=== PATIENT | female | born 1965 | race Caucasian/White ===

== ENCOUNTER 2019-02-13 20:36 | Emergency (ER) | payer OTHER, SELFPAY ==
[2019-02-13 20:37] VITALS: BP 165/78; PULSE 63; RESP 16; TEMP 36.8; O2SAT 96; BMI 40.7
--- NOTE | 2019-02-13 21:19 | CT_ITS ---
STUDY: CT ABDOMEN AND PELVIS WITH CONTRAST REASON FOR EXAM: Female, 53 years old. Right-sided abdominal pain and nausea. History of asthma and GERD and hypertension. RADIATION DOSAGE (If Supplied By Facility): CTDIvol = ( 22.05 ) mGy, DLP = ( 1201.35 ) mGycm TECHNIQUE: Transaxial images were obtained from the dome of the diaphragm to the symphysis pubis without oral contrast. 100ML IV Isovue 370 was administered. Sagittal and coronal images were reconstructed. Individualized dose optimization techniques were used for this CT. COMPARISON: None. FINDINGS: The visualized lung bases are unremarkable. The visualized portions of the heart are within normal limits. Normal liver. 1 tiny gallbladder calcification. Nondistended gallbladder without wall thickening or pericholecystic fluid. Normal spleen. Normal pancreas. Normal bilateral adrenal glands. Normal right kidney. Normal left kidney. Nondistended stomach. Normal small intestine. Excess liquid stool present throughout the colon without wall thickening or diverticulosis The appendix is visualized and appears normal. Normal abdominal aorta. Normal inferior vena cava. Normal retroperitoneum. Nondistended urinary bladder. 1.8 cm right ovarian cyst or dominant follicle. Normal uterus. No free fluid of the pelvis. Minimal fatty left groin hernia. Bilateral chronic pars interarticularis defect at L5 with a grade [address]/Abdomen/Pelvis W IV Cont ONLY IMPRESSION: Negative for evidence of bowel obstruction or perforation. Nondistended stomach and small bowel. Excess liquid stool present throughout the colon without wall thickening or other inflammatory changes. Normal appendix. 1 tiny gallbladder calcification/stone without distention of the gallbladder, wall thickening or pericholecystic fluid nondistended common bile ducts. No acute renal findings. Negative for hydronephrosis or stones. 1.8 cm right ovarian cyst or dominant follicle. Negative for other pelvic mass or free fluid of the pelvis. Electronically Signed: Rosie Zamora MD at 22:57 EDT , Service support ,
[2019-02-13] MEDS: 0.9% Normal Saline 1,000 ML 1000 ML IV (21:50)
[2019-02-13 21:51] LABS: Bacteria 0 SEEN /hpf (None Seen); Mucous, Urine 0 SEEN /hpf (<or=2+); Red Blood Cells-Urine 0 SEEN /hpf (0-5); White Blood Cells 0 SEEN /hpf (0-5)
[2019-02-13] MEDS: Ondansetron 4 MG/2 ML Vial IV (21:51)
[2019-02-13] MEDS: Ketorolac 30 MG/ML Syringe 15 MG IV (21:52)
[2019-02-13 21:55] LABS: Absolute Lymphocyte Count 2.13 X10^3/uL (0.83-4.51); Absolute Neutrophil Count 5.4 X10^3/uL (2.0-7.7); Basophil# 0.04 X10^3/uL; Basophil% 0.5 % (0-1); Eosinophil# 0.11 X10^3/uL; Eosinophils% 1.3 % (0-5); Hematocrit 41.7 % (37-47); Hemoglobin 13.7 g/dL (12.0-15.0); Lymphocyte # 2.13 X10^3/ul (4.0); Lymphocyte % 25.6 % (19-41); Mean Corp Hgb Conc 32.9 g/dL (32-36); Mean Corpuscular Volume 91.2 fL (81-99); Mean Platelet Vol. 10.2 fl (6.2-12.0); Monocyte# 0.66 X10^3/uL; Monocyte% 7.9 % (0-10); NRBC Flagged by Analyzer 0 % (0-5); Neutrophil # 5.36 X10^3/uL (2.7-7.7); Neutrophil % 64.3 % (47-70); Platelet Count 244 K/mm3 (150-450); RBC Distribution Width CV 12.1 % (11.6-14.6); Red Blood Count 4.57 M/mm3 (4.2-5.4); White Blood Count 8.3 K/mm3 (4.4-11.0)
[2019-02-13 21:59] LABS: Color, Urine Yellow (Yellow); Glucose, Dipstick Normal (Normal); Ketone-Dipstick Negative (Negative); Leukocyte Esterase-Dipstick Negative /ul (Negative); Nitrite-Dipstick Negative (Negative); Occult Blood-Urine Negative /ul (Negative); Protein-Dipstick Negative (Negative); Urine Bilirubin Dipstick Negative (Negative); Urine Clarity Clear (Clear); Urine Urobilinogen Normal (Normal)
[2019-02-13 22:05] LABS: Squamous Epithelial Cells - UA 0-5 SEEN /hpf (5-10)
[2019-02-13 22:11] LABS: AST(SGOT) 17 U/L (15-37); Alanine Aminotransfer ALT/SGPT 20 U/L (13-56); Albumin, Serum 3.8 g/dL (3.2-5.0); Alkaline Phosphatase 106 U/L (45-117); Anion Gap 4 (5-15); BUN 9 mg/dL (7-18); BUN/Creat Ratio 8.9 RATIO (10-20); Calcium,Total 9.2 mg/dL (8.5-10.1); Chloride 107 mmol/L (98-107); Creatinine, Serum 1.01 mg/dL (0.55-1.02); EST Glomerular Filtration Rate 61 mL/min (>60); Est Glom Filt Rate - Afr Amer 74 mL/min (>60); Globulin 3.9 g/dL (2.2-4.2); Glucose 90 mg/dL (74-106); Lipase 112 U/L (73-393); Potassium 3.9 mmol/L (3.5-5.1); Protein, Total 7.7 g/dL (6.4-8.2); Sodium Level 141 mmol/L (136-145)
[2019-02-13 23:07] VITALS: BP 134/79; PULSE 74; RESP 16; O2SAT 98
--- NOTE | 2019-02-13 23:38 | ED.VIS.GEN ---
History of Present Illness Chief Complaint: Abd Pain Narrative: Patient presenting for evaluation secondary to nausea and vomiting. Patient states that over the course of approximately the last 8 months she has been dealing with issues of right flank fullness and basically a continuous type pain. Patient states that she has been dealing with generalized fatigue over the course of that time. She denies any unintended weight loss chills or sweats. Patient states that today she had a precipitous onset of nausea and vomiting. She reports that it is nonbloody and nonbilious. Since its onset she reports that she feels as if she needs to pass flatus, but she cannot. She denies any history of abdominal surgeries in the past. No urinary signs or symptoms. Review of systems otherwise negative. Past Medical History - Allergies and Home Meds Allergies/Adverse Reactions: Allergies ciprofloxacin [From Cipro] Allergy (Verified 02/13/19 20:39) Itching Primary Care Physician: Luis Felipe Chawla MD [Primary Care Provider] - Past Medical History: - - noncontributory Smoking Status: Never smoker Review of Systems All systems negative except as indicated General: Denies: Chills, Fever, Weight loss Gastrointestinal: Reports: Nausea, Vomiting Genitourinary: Reports: - - Flank pain Physical Exam Vital Signs/Narrative: Vital Signs Temp Pulse Resp BP Pulse Ox 02/13/19 23:07 74 16 134/79 H 98 02/13/19 20:37 98.2 F 63 16 165/78 H 96 Inital Vital Signs reviewed: Yes General: Well nourished, Well developed, No Acute Distress Head: Normocephalic, Atraumatic Eyes: Perrl, EOMI ENT: Moist mucous membranes, No rhinorrhea Neck: Supple, Nontender Cardiovascular: Regular rate, Regular rhythm, No murmurs Respiratory: No distress, CTA bilaterally, Chest nontender Abdomen: Soft, Nontender, Nondistended, Normal bowel sounds Back: Nontender, Normal Inspection Extremities: Nontender, No edema Skin: Normal color, No rash Neurological: Alert, Oriented x3, Cranial nerves II-XII grossly intact, Normal Strength, Normal Sensation Psychological: Normal affect, Normal Mood Diagnostic/Tx/Re-eval - Medical Decision Making Patient presented secondary to a perpetual feeling of right upper quadrant and right flank fullness with fatigue nausea vomiting and reports of decreased flatus. There is at least some concern for the possibility of an obstruction or mass or work-up was obtained. CBC, CMP unremarkable. Urinalysis negative. CT abdomen and pelvis per radiology also found to be negative. Patient was given IV fluids and Zofran and did have some symptomatic improvement. This point I do not really have an explanation for the patient's chronic fatigue or right flank discomfort, but she seems to have no emergent processes at this time. Patient was discharged with reassurance in improved condition, she likely has an element of gastritis today. ED Disposition - Plan for ED Patient: Disposition: Home or Assisted Living Diagnosis: Gastritis Instructions: ABDOMINAL PAIN, Unknown Cause, (Female), VOMITING (8y-Adult) Referrals: Luis Felipe Chawla MD [Primary Care Provider] - 1-2 Weeks
[2019-02-13 23:47] VITALS: BP 132/74; PULSE 80; RESP 16; O2SAT 98
[2019-02-13 23:49] VITALS: BP 132/74; PULSE 82; RESP 16; O2SAT 98
== END 2019-02-13 23:51 | disposition home or self-care (01) ==
PROVIDERS: Emergency Provider Emergency Medicine; Family Provider Family Medicine; PCP Family Medicine
DX: K29.70 Gastritis, unspecified, without bleeding (principal)
CPT/HCPCS: 74177; 80053; 81001; 83690; 85025; 90471; 96361; 96374; 96375; 99285; J7030; Q9967; J2405

== ENCOUNTER 2019-02-15 19:26 | Emergency (ER) | payer OTHER, SELFPAY ==
[2019-02-15 19:27] VITALS: BP 160/93; PULSE 59; RESP 15; TEMP 36.7; O2SAT 98; BMI 40.6
--- NOTE | 2019-02-15 19:48 | US_ITS ---
STUDY: ABDOMINAL ULTRASOUND - RIGHT UPPER QUADRANT REASON FOR VISIT: Female, 53 years old. Right upper quadrant pain TECHNIQUE: Ultrasound evaluation of the right upper quadrant was performed with real-time and static pulido-scale imaging. TECHNICAL QUALITY: Adequate. COMPARISON: CT abdomen and pelvis February 13, 2019 FINDINGS: Liver: The liver measures 20 cm. There is normal echogenicity of the liver. The bile ducts are within normal limits. There is hepatic color flow. The direction of portal flow is hepatopetal. There is no demonstrated mass lesion. Gallbladder: Normal distended gallbladder. The gallbladder wall measures 2 mm. There is a negative sonographic Wahl's sign. There is no pericholecystic fluid.. There is a 4 mm hyperechoic focus at the gallbladder wall. Common Bile Duct (C.B.D.): The common bile duct measures 3 mm. Pancreas: Normal size of the head, body and tail of the pancreas. There is normal echogenicity of the pancreas. There is no demonstrated pancreatic mass or cyst. Right Kidney: Normal size of the right kidney. The right kidney measures 11 cm. Normal renal cortex. There is no demonstrated renal mass or cyst. There is no right hydronephrosis. US/Gallbladder IMPRESSION: No acute abdominal pathology identified. 4 mm hyperechoic focus at the gallbladder wall, which may represent a wall calcification, polyp or adherent stone. Electronically Signed: Agustín Singh, at 20:35 EDT Tel , Service support ,
[2019-02-15] MEDS: Ondansetron 4 MG/2 ML Vial IV (19:55)
[2019-02-15] MEDS: 0.9% Normal Saline 1,000 ML 1000 ML IV (19:55)
[2019-02-15 19:56] LABS: Absolute Lymphocyte Count 1.71 X10^3/uL (0.83-4.51); Absolute Neutrophil Count 5.4 X10^3/uL (2.0-7.7); Basophil# 0.03 X10^3/uL; Basophil% 0.4 % (0-1); Eosinophil# 0.12 X10^3/uL; Eosinophils% 1.5 % (0-5); Hematocrit 38.6 % (37-47); Hemoglobin 12.7 g/dL (12.0-15.0); Lymphocyte # 1.71 X10^3/ul (4.0); Lymphocyte % 21.3 % (19-41); Mean Corp Hgb Conc 32.9 g/dL (32-36); Mean Corpuscular Hgb 30.2 pg (27.0-32.0); Mean Corpuscular Volume 91.9 fL (81-99); Mean Platelet Vol. 10.4 fl (6.2-12.0); Monocyte# 0.76 X10^3/uL; Monocyte% 9.5 % (0-10); NRBC Flagged by Analyzer 0 % (0-5); Neutrophil # 5.36 X10^3/uL (2.7-7.7); Neutrophil % 66.9 % (47-70); Platelet Count 232 K/mm3 (150-450); RBC Distribution Width CV 12.1 % (11.6-14.6); RBC Distribution Width SD 40.6 fl (35.1-43.9)
[2019-02-15] MEDS: Ketorolac 30 MG/ML Syringe 15 MG IV (19:57)
[2019-02-15 20:12] LABS: AST(SGOT) 19 U/L (15-37); Alanine Aminotransfer ALT/SGPT 20 U/L (13-56); Albumin, Serum 3.6 g/dL (3.2-5.0); Alkaline Phosphatase 95 U/L (45-117); Anion Gap 5 (5-15); BUN 9 mg/dL (7-18); BUN/Creat Ratio 9.6 RATIO (10-20); Calcium,Total 8.7 mg/dL (8.5-10.1); Chloride 108 mmol/L (98-107); Creatinine, Serum 0.93 mg/dL (0.55-1.02); EST Glomerular Filtration Rate 67 mL/min (>60); Est Glom Filt Rate - Afr Amer 81 mL/min (>60); Globulin 3.5 g/dL (2.2-4.2); Glucose 82 mg/dL (74-106); Lipase 119 U/L (73-393); Potassium 4.3 mmol/L (3.5-5.1); Protein, Total 7.1 g/dL (6.4-8.2); Sodium Level 140 mmol/L (136-145)
--- NOTE | 2019-02-15 21:16 | ED.DCSUM_ITS ---
History of Present Illness Chief Complaint: Abd Pain Narrative: Patient presenting for evaluation secondary to abdominal pain nausea vomiting. Patient was in the emergency department 2 days ago with a similar complaints and had a negative work-up including blood work urinalysis and CT scan. Patient states that she had reemergence of her abdominal pain. She reports that it is a fullness type feeling in her right upper quadrant and right flank. This been associated with nausea and vomiting this afternoon. Patient states that she saw her primary care today, and she is going to be following up with a general surgeon as she was noted to have a gallstone on CT. Patient denies any current urinary signs or symptoms. She denies any presence of fevers. Review of systems otherwise negative. Past Medical History - Allergies and Home Meds Allergies/Adverse Reactions: Allergies ciprofloxacin [From Cipro] Allergy (Verified 02/15/19 19:31) Itching Primary Care Physician: Luis Felipe Chawla MD [Primary Care Provider] - Past Medical History: None Smoking Status: Never smoker Review of Systems All systems negative except as indicated General: Denies: Fever Gastrointestinal: Reports: Abdominal pain, Nausea, Vomiting Physical Exam Vital Signs/Narrative: Vital Signs Temp Pulse Resp BP Pulse Ox 02/15/19 19:27 98.0 F 59 L 15 160/93 H 98 Inital Vital Signs reviewed: Yes General: Well nourished, Well developed, No Acute Distress Head: Normocephalic, Atraumatic Eyes: Perrl, EOMI ENT: Moist mucous membranes, No rhinorrhea Neck: Supple, Nontender Cardiovascular: Regular rate, Regular rhythm, No murmurs Respiratory: No distress, CTA bilaterally, Chest nontender Abdomen: Soft, Nondistended, Normal bowel sounds, Tender - Right upper quadrant no guarding or rebound Back: Nontender, Normal Inspection Extremities: Nontender, No edema Skin: Normal color, No rash Neurological: Alert, Oriented x3, Cranial nerves II-XII grossly intact, Normal Strength, Normal Sensation Psychological: Normal affect, Normal Mood Diagnostic/Tx/Re-eval - Medical Decision Making Patient presented secondary to abdominal pain with nausea and vomiting. I saw this patient 2 days ago, so unfamiliar with her work-up and her history. I did remember that she had a gallstone, so right upper quadrant ultrasound was obtained which was found to be negative for cholecystitis, but does show cholelithiasis. Patient's laboratory work-up including CBC CMP and lipase were unremarkable and showed no abnormal trending. Patient was given Toradol Zofran and fluids and had symptomatic improvement on repeat evaluation at 2119. At this point the patient potentially has an element of biliary colic. Patient will be sent home with a course of Toradol and Zofran. She already has follow- up scheduled with general surgery, she was recommended to keep that. All questions were answered and the patient was discharged. Disposition: Home ED Disposition - Plan for ED Patient: Disposition: Home or Assisted Living Diagnosis: Cholelithiasis Instructions: BILIARY COLIC with Gallstone (Confirmed) Prescriptions: Ketorolac [Toradol] 10 mg PO Q6H PRN #20 tab PRN Reason: Pain Prescription Printed Ondansetron [Zofran Odt] 4 mg PO Q8H PRN PRN #10 tab PRN Reason: Nausea Prescription Printed Referrals: Tsering Messer MD [STAFF PHYSICIAN] - Keep [facility] appointment
[2019-02-15 21:33] VITALS: BP 137/72; PULSE 60; RESP 16; O2SAT 98
== END 2019-02-15 21:35 | disposition home or self-care (01) ==
PROVIDERS: Emergency Provider Emergency Medicine; Family Provider Family Medicine; PCP Family Medicine
DX: K80.20 Calculus of gallbladder without cholecystitis without obstruction (principal)
CPT/HCPCS: 76705; 80053; 83690; 85025; 96361; 96374; 96375; 99283; J7030; A4216; J2405